=== PATIENT | male | born 1955 | race Caucasian/White ===

== ENCOUNTER → 2024-07-03 12:15 | Outpatient (REF) | payer OTHER, SELFPAY | LOC: RAD 12:15 | PROVIDERS: ATTENDING PHYSICIAN Nurse Practitioner Adult Health | DX: U07.1 COVID-19 (principal); R05.1 Acute cough | CPT/HCPCS: 71046 ==

== ENCOUNTER → 2024-12-28 16:14 | Outpatient (REF) | payer OTHER, SELFPAY | LOC: RAD 16:14 | PROVIDERS: ATTENDING PHYSICIAN Registered Nurse | DX: M25.551 Pain in right hip (principal) | CPT/HCPCS: 73502 ==